=== PATIENT | male | born 1945 | race Caucasian/White ===

== ENCOUNTER 2021-12-05 05:57 | Day surgery (SDC) | payer MEDICARE, SELFPAY ==
[2021-12-05 06:24] VITALS: BP 141/86; PULSE 81; RESP 18; TEMP 36.6; O2SAT 98
[2021-12-05] MEDS: Lactated Ringers 1,000 ML 80 ML IV (06:50)
[2021-12-05] MEDS: ceFAZolin 2 GM/50 ML BAG IVPB (07:32)
[2021-12-05] MEDS: Lidocaine 1% Multi-Dose W/EPI 1/100,000 50 ML VIAL (07:35)
[2021-12-05] MEDS: Bupivacaine 0.25% Pres-Free 10 ML VIAL (07:35)
--- NOTE | 2021-12-05 08:24 | W.PM.DS.N ---
Date of service: 12/05/21 Time of Service: 08:24 DS: Diagnosis Discharge Diagnosis (1) Diabetic ulcer of right great toe: Status: Acute (2) Hallux rigidus of right foot: Start date: 12/05/21 Start time: 08:26 Status: Acute Asessment and Plan: Amputation right great toe Discharge Plan Disposition Patient Disposition: HOME Condition: Good Discharge Details Attending Provider: Matt Purvis Home Meds and New Rx's Prescriptions: No Action atenolol 100 mg Tablet 100 mg PO DAILY glipizide 10 mg Tablet 10 mg PO DAILY simvastatin 80 mg Tablet 80 mg PO DAILY aspirin [Aspir-Low] 81 mg Tablet,Delayed Release (Dr/Ec) 81 mg DAILY amlodipine 10 mg Tablet 10 mg PO DAILY folic acid 1 mg Tablet 1 mg PO DAILY hydrochlorothiazide 25 mg Tablet 25 mg PO DAILY paroxetine HCl 40 mg Tablet 40 mg PO DAILY lisinopril 40 mg Tablet 40 mg PO DAILY Lantus U-100 Insulin 100 unit/mL Cartridge 30 unit SUBCUT QPM semaglutide 0.25 mg or 0.5 mg(2 mg/1.5 mL) Pen Injector 0.5 mg SUBCUT QWEEK Discharge Instructions Activity:: Elevate Remove Dressings/Wound Care:: Do Not Remove Shower/Bathe:: Cover Diet:: Carb Counting Discharge Orders Discharge Orders: Discharge Order (Routine); Ordered 12/05/21 Ordered By: Matt Purvis DS: Summary Time Spent with Patient providing and/or coordinating discharge services: Less than 30 minutes Status at Discharge Functional status at discharge: independent ambulation Overall status at discharge: patient is back to baseline Mental Status: mental status grossly normal Speech and Movement: speech and movement normal Mood: congruent mood Affect: normal affect Exam Psych Mental Status: mental status grossly normal Speech and Movement: speech and movement normal Mood: congruent mood Affect: normal affect DS: Data Vitals/I&O Vitals and I&O: Vital Signs Temperature 36.6 C 12/05/21 06:24 Pulse 81 12/05/21 06:24 Pulse Rhythm Regular 12/05/21 06:24 Respiratory Rate 18 12/05/21 06:24 Respiratory Depth Normal 12/05/21 06:24 Blood Pressure 141/86 H 12/05/21 06:24 Pulse Oximetry 98 12/05/21 06:24 Oxygen Delivery Method Room Air 12/05/21 06:24 Oxygen Flow Rate 0 12/05/21 06:24 Pain Level 0 12/05/21 06:24 Intake & Output 12/04/21 12/05/21 12/05/21 18:59 06:59 18:59 Intake Total 150 / 150 Balance 150 / 150 Weight 92.5 kg Intake: IV 150 / 150 PFSH All Active Problems Hallux rigidus of right foot (Acute) Diabetic ulcer of right great toe (Acute) Medical History Asbestos exposure Depressive disorder Diabetes mellitus, type 2 Hearing loss, bilateral Hyperlipidemia Hypertension Polyp of vocal cord Rosacea Sciatica Surgical History History of cholecystectomy History of foot surgery Tenotomy (R) Toes per office note. History of testicular surgery Per office note: 2019-scrotum/testicular procedure unspecified. History of vocal cord polypectomy Social History Smoking/Tobacco Use Status: Former Tobacco Use Smoking risk assessment performed?: Yes Alcohol Intake: never Substance use type: does not use Do you feel safe at home: Yes Do you feel safe in your relationship?: Yes
--- NOTE | 2021-12-05 08:27 | ROE_ITS ---
Date of service: 12/05/21 Time of Service: 08:27 Operative Note Operative Note DATE OF PROCEDURE: 12/05/21 PRE-OP DIAGNOSIS: Diabetic ulcer right hallux/hallux rigidus PROCEDURE: Amputation right great toe through the interphalangeal joint SURGEON: Matt Purvis ANESTHESIA TYPE: Local By Surgeon Refer to Anesthesia Record ESTIMATED BLOOD LOSS: 1 PATHOLOGY: none sent TOURNIQUET TIME: 30 COMPLICATIONS: None Patient was transported to: same day Patient's condition: stable Indications: 76-year-old male with multiple comorbidities including diabetes and peripheral neuropathy with chronic ulceration under the interphalangeal joint of the right great toe. The wound has failed to improve in spite of aggressive wound management and biomechanical attention. Julian has opted to proceed with amputation of the right great toe. He understands the risk and complications of surgery including the potential for pain, scarring, infection, failure to thrive requiring additional surgery, the permanency of an amputation. Informed consent has been obtained no promises made to the final outcome of surgery. Procedure Description: Julian was brought to the operative suite placed in the supine position with the right foot prepped and draped in the usual sterile podiatric fashion. Anesthesia was obtained with 10 cc of a 50: 50 mixture 1% lidocaine with epinephrine and 0.25% Marcaine plain as a Rhodes block. Attention was directed to the right great toe where a modified Esmarch bandage was applied at the base of the toe ulcer hemostasis. Dorsal and plantar flaps were then developed so as to afford an amputation at and just distal to the interphalangeal joint. The extensor tendon was severed and the joint capsule released hemostasis was acquired through electrocautery as vessels were identified the incision was then carried medially and laterally and the flexor tendons were severed and the reid ntar capsule released and the distal portion of the hallux removed from the surgical field. The ulceration which contained under the distal phalanx tissue and removed in its entirety. There were a couple of supernumerary sesamoids at the head of the proximal phalanx and these were dissected out of the flexor tendon the bone and soft tissues at this level level appeared healthy. Copious irrigation with normal saline was performed. The deep tissues were brought together with 3-0 Vicryl bringing the extensor and flexor tendons and to and the skin was then coapted utilizing 2-0 nylon in a far near near far suture technique as retention suture followed by simple interrupted suture of 4-0 nylon. The skin came together very nicely without undue stress. The digit was dressed once sharp and sponge counts were correct with Xeroform gauze fluff compression dressings. The tourniquet was released from the base of the toe and vascularity returned immediately. Julian left the OR with vital signs stable vascular status intact sharp and sponge counts were correct he will be followed by myself in the office next week.
[2021-12-05 08:32] VITALS: BP 139/78; PULSE 89; RESP 17; TEMP 36.7; O2SAT 94
== END 2021-12-05 08:57 | disposition home or self-care (01) ==
PROVIDERS: Visit Provider Podiatrist
PROC: (CPT 28825; principal; 2021-12-05 07:30)
DX: E11.621 Type 2 diabetes mellitus with foot ulcer (principal); M20.21 Hallux rigidus, right foot; L97.519 Non-pressure chronic ulcer of other part of right foot with unspecified severity; L02.611 Cutaneous abscess of right foot
CPT/HCPCS: 28825; 87077; 87070; 87075; 87186; 87205; J0690

== ENCOUNTER 2022-02-25 11:49 | Outpatient (REF) | payer MEDICARE, SELFPAY | END 2022-02-25 11:50 | disposition home or self-care (01) | LOC: LBN 11:49 | PROVIDERS: Visit Provider Podiatrist Foot & Ankle Surgery | DX: E11.621 Type 2 diabetes mellitus with foot ulcer (principal); M20.21 Hallux rigidus, right foot; L97.519 Non-pressure chronic ulcer of other part of right foot with unspecified severity; L02.611 Cutaneous abscess of right foot | CPT/HCPCS: 87077; 87070; 87075; 87186; 87205 ==